=== PATIENT | male | born 1980 | race Caucasian/White ===

== ENCOUNTER 2016-11-26 07:50 | Observation (INO) | payer OTHER ==
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
[2016-11-26 08:12] LABS: % IMMATURE GRANULYOCYTES 0.9 % (0.0-1.1); ABSOLUTE IMMATURE GRANULOCYTES 0.21 10^3/uL (0.00-0.10); ADD DIFF? NO; ADD MORPH? NO; ADD SCAN? NO; ATYPICAL LYMPHOCYTE FLAG 0 (0-99); FRAGMENT RBC FLAG 0 (0-99); HEMATOCRIT 48.5 % (40.0-51.0); HEMOGLOBIN 16.7 g/dL (13.7-17.5); LEFT SHIFT FLG 0 (0-99); LIPEMIA HEMOLYSIS FLAG 90 (0-99); MEAN CELL HEMOGLOBIN 31.2 pg (27.9-34.1); MEAN CELL HEMOGLOBIN CONCENTR. 34.4 g/dL (32.4-36.7); MEAN CELL VOLUME 90.7 fL (81.5-99.8); MEAN PLATELET VOLUME 11.1 fL (8.7-11.7); PLATELET CLUMPS FLAG 20 (0-99); PLATELET COUNT 221 10^3/uL (150-400); RED BLOOD CELL COUNT 5.35 10^6/uL (4.40-6.38); RED CELL DISTRIBUTION WIDTH 12.1 % (11.5-15.2)
[2016-11-26 08:19] LABS: ANION GAP 21 mEq/L (8-16); CALCIUM 9.6 mg/dL (8.5-10.4); CARBON DIOXIDE 24 mEq/l (22-31); CHLORIDE 101 mEq/L (97-110); CREATININE 1.1 mg/dL (0.7-1.3); ETHANOL SERUM < 10 mg/dL (0-10); GLOMERULAR FILTRATION RATE > 60; GLUCOSE 140 mg/dL (70-100); POTASSIUM 3.9 mEq/L (3.5-5.2); SODIUM 146 mEq/L (134-144)
[2016-11-26 08:21] LABS: INR 1.09 (0.83-1.16)
[2016-11-26 08:22] LABS: APTT 25.9 SEC (23.0-38.0)
[2016-11-26] MEDS ORDERED: IOPAMIDOL (ISOVUE-300) 100 ML BTL IV ONE (08:41)
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
--- NOTE | 2016-11-26 09:24 | DX ---
Portable Right Shoulder and Right Scapula (5 Views Total at 8:32 a.m.) Clinical History: 36-year-old male status post fall, complaining of right shoulder pain. Comparison Study: CT scan of the chest from today at 8:22 a.m. Findings: RIGHT SHOULDER: There is a distal right clavicular fracture with slight cephalad apex angular deform ity, and CT images also demonstrated a fracture at the base of the coracoid process, as well as a min or nondisplaced fracture over the central aspect of the right scapula. The glenohumeral and acromiocl avicular joints remain anatomically aligned. The coracoclavicular distance is normal. The visualized right rib cage is unremarkable. Numerous telemetry monitoring lead lines are present. Impression: 1. Distal right clavicular fracture with slight cephalad apex angulation. 2. Fracture involving the base of the coracoid process. 3. Glenohumeral alignment. 4. Nondisplaced minor fracture through the central right scapula (seen to better advantage on the CT scan). RIGHT SCAPULA: Fractures involving the subcoracoid process of the scapula and central scapular body were seen to better advantage on dedicated CT imaging. Impression: Limited evaluation of the scapula (please reference the chest CT imaging and report).
[2016-11-26] MEDS ORDERED: TDAP ADULT 0.5 ML VIAL (BOOSTRIX) IM ONE (09:30)
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
[2016-11-26] MEDS ORDERED: ONDANSETRON 4 MG/2 ML VIAL IVP PRN (09:52)
--- NOTE | 2016-11-26 10:40 | DX ---
Portable Bilateral Feet, Ankles, and Calcanei Clinical History: 36-year-old male status post fall, complaining of pain. Comparison Study: None. Findings: PORTABLE LEFT FOOT (3 Views, at 9:33 a.m.): Bone mineralization is preserved. There is no fracture or dislocation. The tarsometatarsal alignment is anatomic. Impression: Negative. PORTABLE LEFT CALCANEUS (AP and Lateral Views, 10:07 a.m.): There is no fracture or dislocation. Boeh ler's angle is normal. The subtalar joint is normal. There is some very mild indistinctness of the pr e-Achilles fat pad. Impression: No acute osseous abnormality. PORTABLE LEFT ANKLE (3 Views, at 9:34 a.m.): Bone mineralization is preserved. There is no fracture o r dislocation. The mortise is maintained. There is no ankle joint effusion. Impression: There is no acute osseous abnormality. PORTABLE RIGHT FOOT (3 Views, at 9:40 a.m.): Bone mineralization is observed. There is some mild dege nerative change of the great toe metatarsophalangeal joint with mild joint space narrowing and some l ateralized early osteophyte formation. There is a bone island at the great toe distal tuft. There is no acute fracture or dislocation. The tarsometatarsal alignment is anatomic. Impression: No acute osseous abnormality. PORTABLE RIGHT CALCANEUS (AP and Lateral Views, at 10:07 a.m.): There is no acute fracture or disloca tion. Boehler's angle is normal. The subtalar joint is normal. There is some mild indistinctness of t he pre-Achilles fat pad. There is no radiopaque foreign body. Impression: No acute osseous abnormality. PORTABLE RIGHT ANKLE (3 Views, at 9:34 a.m.): There is no fracture, dislocation, or mortise disruptio n. The talar dome is well-contoured. The subtalar joint is normal. There is no ankle joint effusion. Impression: There is no acute osseous abnormality.
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
[2016-11-26] MEDS: BACITRACIN ZINC TP SCH ×2 (11:46→20:53)
[2016-11-26] MEDS: LR 1,000 ML IV SCH ×2 (11:47→18:30)
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
[2016-11-26] MEDS ORDERED: ZOLPIDEM TARTRATE 5 MG TAB PO PRN (14:35)
--- NOTE | 2016-11-26 15:06 | GCON ---
[f rep st] CONSULTATION CRITICAL CARE CONSULTATION. DATE OF CONSULTATION: 11/26/2016 CHIEF COMPLAINT: Right shoulder pain. HISTORY OF PRESENT ILLNESS: This is a 36-year-old male who is reported to have fallen approximately 40 feet last night. He was brought to the emergency room and admitted to the ICU. The details of hi s fall seem quite unclear at this time. He complained of right shoulder pain and further evaluation revealed a right clavicle and a right scapula fracture. The patient is unable to give a very good hi story at this point, as he is schizophrenic and is actually talking to an imaginary friend in the [facility] at the time that I see him. His parents are here, but he is primarily ignoring them at this point and not answering their questions either. The parents state that he has a long history of schizophre gianfranco and has been on medications for that, but stops them and has not been on medications recently. Amy good lives with his parents, who have recently moved from [place] to [place]. He left them yesterday to go watch the [employer] in [place]. Apparently, he was a student at at some point. The patien shreyas is complaining of some right shoulder pain still, although it seems well controlled, as I have to a sk him whether he is having any discomfort. PAST MEDICAL HISTORY: Schizophrenia. ALLERGIES: To medications none. MEDICATIONS: He is not taking any. PAST SURGICAL HISTORY: None. SOCIAL HISTORY: The patient does not smoke, use excessive alcohol, or any illicit drugs. He lives w ith his parents in [place]. REVIEW OF SYSTEMS: Review of systems x10 points is otherwise noncontributory. PHYSICAL EXAMINATION: VITAL SIGNS: Blood pressure is 120/70 with a pulse of 91, respiratory rate of 19, oxygen saturation 98% on 2 L, and he is afebrile. SKIN: Normal. HEAD: Without external evide nce of trauma. EYES: PERRL. External ocular movements full. Fundi not visualized. EARS: Canals c lear. Tympanic membranes intact. NOSE: Without septal deviation or polyps. MOUTH and PHARYNX: Cl ear without lesions. NECK: Supple without adenopathy. No jugular venous distention. Thyroid is no rmal. Trachea is midline. Carotids 2+ and symmetric without bruits. CHEST: Clear to auscultation and percussion. HEART: PMI 5th intercostal space, midclavicular line. S1 and S2 are normal. There is no S3, S4, or murmur. ABDOMEN: Soft without organomegaly or masses. Bowel sounds are present. There is no tenderness. EXTREMITIES: Full range of motion without clubbing, cyanosis, or periphera l edema, except for the right arm which is limited by pain in his shoulder. DATABASE: Head CT shows a right posterior scalp hematoma without any intracranial bleed. Cervical s pine film shows no acute injuries. He does have a fracture of his right clavicle and right scapula o n films. IMPRESSION: 1. Right clavicle and right scapula fractures. 2. Scalp hematoma without intercerebral bleed. 3. Chronic schizophrenia, untreated. PLAN: The patient is being monitored in the intensive care unit with neuro checks. He has been seen by Trauma Surgery, Neurosurgery, and Orthopedic Surgery. Eventually, we will try to get a psychiatr ic consultation to see if we can resume some psych medications, but the patient has always stopped th ose in the past on his own, so that is unlikely to be very successful. /[id number]/MODL
[2016-11-26 16:42] LABS: % IMMATURE GRANULYOCYTES 0.5 % (0.0-1.1); ABSOLUTE IMMATURE GRANULOCYTES 0.05 10^3/uL (0.00-0.10); ADD DIFF? NO; ADD MORPH? NO; ADD SCAN? NO; ATYPICAL LYMPHOCYTE FLAG 10 (0-99); FRAGMENT RBC FLAG 0 (0-99); HEMATOCRIT 41.1 % (40.0-51.0); HEMOGLOBIN 14.3 g/dL (13.7-17.5); LEFT SHIFT FLG 0 (0-99); LIPEMIA HEMOLYSIS FLAG 90 (0-99); MEAN CELL HEMOGLOBIN 31.4 pg (27.9-34.1); MEAN CELL HEMOGLOBIN CONCENTR. 34.8 g/dL (32.4-36.7); MEAN CELL VOLUME 90.1 fL (81.5-99.8); PLATELET CLUMPS FLAG 0 (0-99); PLATELET COUNT 180 10^3/uL (150-400); RED BLOOD CELL COUNT 4.56 10^6/uL (4.40-6.38); RED CELL DISTRIBUTION WIDTH 12.2 % (11.5-15.2)
[2016-11-26] MEDS ORDERED: BACITRACIN OINTMENT 1 PACKET TP ONE (20:47)
[2016-11-26] MEDS: OXYCODONE/APAP 5/325 TAB PO PRN (20:53)
[2016-11-27] MEDS: OXYCODONE/APAP 5/325 TAB PO PRN ×2 (01:32→09:49)
[2016-11-27 01:37] LABS: % IMMATURE GRANULYOCYTES 0.2 % (0.0-1.1); ABSOLUTE IMMATURE GRANULOCYTES 0.02 10^3/uL (0.00-0.10); ADD DIFF? NO; ADD MORPH? NO; ADD SCAN? NO; ATYPICAL LYMPHOCYTE FLAG 0 (0-99); FRAGMENT RBC FLAG 0 (0-99); HEMATOCRIT 39.8 % (40.0-51.0); HEMOGLOBIN 13.8 g/dL (13.7-17.5); LEFT SHIFT FLG 0 (0-99); LIPEMIA HEMOLYSIS FLAG 90 (0-99); MEAN CELL HEMOGLOBIN 31.2 pg (27.9-34.1); MEAN CELL HEMOGLOBIN CONCENTR. 34.7 g/dL (32.4-36.7); MEAN PLATELET VOLUME 10.8 fL (8.7-11.7); PLATELET CLUMPS FLAG 20 (0-99); PLATELET COUNT 162 10^3/uL (150-400); RED BLOOD CELL COUNT 4.42 10^6/uL (4.40-6.38); RED CELL DISTRIBUTION WIDTH 12.1 % (11.5-15.2)
[2016-11-27] MEDS: LR 1,000 ML IV SCH (01:38)
[2016-11-27 05:50] LABS: % IMMATURE GRANULYOCYTES 0.5 % (0.0-1.1); ABSOLUTE IMMATURE GRANULOCYTES 0.05 10^3/uL (0.00-0.10); ADD DIFF? NO; ADD MORPH? NO; ADD SCAN? NO; ATYPICAL LYMPHOCYTE FLAG 20 (0-99); FRAGMENT RBC FLAG 0 (0-99); HEMATOCRIT 38.5 % (40.0-51.0); HEMOGLOBIN 13.5 g/dL (13.7-17.5); LEFT SHIFT FLG 0 (0-99); LIPEMIA HEMOLYSIS FLAG 90 (0-99); MEAN CELL HEMOGLOBIN 31.9 pg (27.9-34.1); MEAN CELL HEMOGLOBIN CONCENTR. 35.1 g/dL (32.4-36.7); MEAN PLATELET VOLUME 10.8 fL (8.7-11.7); PLATELET CLUMPS FLAG 10 (0-99); PLATELET COUNT 154 10^3/uL (150-400); RED BLOOD CELL COUNT 4.23 10^6/uL (4.40-6.38)
[2016-11-27 06:03] LABS: ANION GAP 9 mEq/L (8-16); CALCIUM 8.8 mg/dL (8.5-10.4); CARBON DIOXIDE 27 mEq/l (22-31); CHLORIDE 103 mEq/L (97-110); CREATININE 0.8 mg/dL (0.7-1.3); GLOMERULAR FILTRATION RATE > 60; GLUCOSE 119 mg/dL (70-100); POTASSIUM 4.2 mEq/L (3.5-5.2); SODIUM 139 mEq/L (134-144)
--- NOTE | 2016-11-27 08:57 | TRAUMAPN ---
- Problem/Surgery Performed (1) Head injury Assessment/Plan: cognitive evaluation with speech therapy today, if clear for discharge, may be able to go home today Qualifiers: Encounter type: initial encounter Qualifier Code(s): (S09.90XA) Unspecified injury of head, initial encounter (2) Right clavicle fracture Assessment/Plan: f/u with Dr. Ceron in 7-10 days with repeat right shoulder Xrays continue sling and ice for comfort Qualifiers: Encounter type: initial encounter Clavicle location: shaft Fracture type: closed Fracture alignment: nondisplaced Qualifier Code(s) : (S42.024A) Nondisplaced fracture of shaft of right clavicle, initial encounter for closed fracture (3) Right scapula fracture Assessment/Plan: f/u with Dr. Ceron in 7-10 days with repeat right shoulder Xrays continue sling and ice for comfort Qualifiers: Encounter type: initial encounter Scapula location: coracoid process Fracture type: closed Fracture alignment: nondisplaced Qualifier Code (s): (S42.134A) Nondisplaced fracture of coracoid process, right shoulder, initial encounter for closed fracture (4) Scalp laceration Assessment/Plan: remove binta in 6 days Qualifiers: Encounter type: initial encounter Qualifier Code(s): (S01.01XA) Laceration without foreign body of scalp, initial encounter Objective: Vital Signs Temp Pulse Resp BP Pulse Ox 36.9 C 65 15 99/57 L 97 11/27/16 07:47 11/27/16 07:47 11/27/16 07:47 11/27/16 07:47 11/27/16 07:47 Laboratory Results 11/27/16 05:40 11/27/16 05:40 11/26/16 11/27/16 11/28/16 05:59 05:59 05:59 Intake Total 4570 Output Total 700 Balance 3870 PT 14.0 SEC (12.0-15.0) 11/26/16 07:45 INR 1.09 (0.83-1.16) 11/26/16 07:45 - C-Spine Clearance Cervical Spine Cleared: Yes Provider who Cleared Cervical Spine: Iliana Time Cervical Spine was Cleared: 09:00 Physical Exam - Physical Exam General Appearance: alert Neck: non-tender, full range of motion Respiratory: lungs clear Cardiac/Chest: regular rate, rhythm Abdomen: non-tender, soft
[2016-11-27] MEDS ORDERED: DOCUSATE SODIUM 100 MG CAP PO SCH (09:00)
[2016-11-27] MEDS: BACITRACIN ZINC TP SCH (09:53)
--- NOTE | 2016-11-27 10:22 | NEUSURGPN ---
Assessment/Plan: 36y/o male s/p fall 30 feet. Negative HCT. Was able to clear cervical spine this morning clinically this morning -PT/OT -Optimize pain management -Will s/o at this time. If he develops any new or worsening symptoms please notify NS with any change in neuro/motor exam Subjective: lateral pain on top of his shoulders. Denies any spinal TTP Objective: NAD A&Ox3 MAEx4, right arm in sling, wiggle fingers, LUE and BLE 5/5 - Physician Discussed Patient with : [facility] Neurosurgery Physical Exam - Vitals, I&O, Labs I and O 11/26/16 11/27/16 11/28/16 05:59 05:59 05:59 Intake Total 4570 Output Total 700 Balance 3870 Weight 95.254 kg Intake: Oral (ml) 1700 IV Intake (ml) 670 IV Infused (ml) 2200 Lr 1,000 ml @ 125 mls/hr 1500 IV CONT BRADLEY Rx#: [id number] Output: Urine (ml) 700 Urinal 700 Chest Tube Drainage (ml) 0 Estimated Blood Loss (ml) 0 Emesis (ml) 0 Gastrointestinal Drainage 0 (ml) Wound Drainage (ml) 0 Other: Number of Voids 0 Urinal 1 Number of Bowel Movements 0 Number of Emesis 0 Occurrences Vital Signs Temp Pulse Resp BP Pulse Ox 36.9 C 65 15 99/57 L 97 11/27/16 07:47 11/27/16 07:47 11/27/16 07:47 11/27/16 07:47 11/27/16 07:47 Laboratory Results 11/27/16 05:40 11/27/16 05:40 ICD10 Worksheet Patient Problems: Problems Problem Status Diagnosed Abrasions of multiple sites Acute Head injury Acute Right clavicle fracture Acute Right scapula fracture Acute Scalp laceration Acute
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
[2016-11-27 11:49] VITALS: TEMP 98.7; O2SAT 96
--- NOTE | 2016-11-27 12:08 | MR ---
MRI of the Cervical Spine (Without Contrast) History: Neck pain post fall yesterday Comparison: CT yesterday Technique: Saggital T1, FSE T2 and STIR images. Axial FSE T2 and GRE images. Findings: The craniocervical junction is normal. Cervical alignment is anatomic.The cervical neural c anal is congenitally small. Vertebral bodies maintain normal bone marrow signal. The anterior and pos terior longitudinal ligaments are intact. Disk spaces maintain normal height. The cervical cord is no rmal intrinsically, without evidence of edema, hemorrhage, cyst formation or gliosis. All neural fora men are widely patent. C2-C3: Normal C3-C4: There is a mild central disk bulge that approaches the ventral aspect of the cord. The cord is not flattened or dorsally displaced. In the midline AP diameter of the thecal sac is approximately 1 0 mm. C4-C5: There is a focal central , angular, disk bulge or protrusion that touches the ventral aspect o f the cervical cord, which is subtly indenting. The cord is not dorsally displaced. In the midline AP diameter of the thecal sac is approximately 9.3 mm. C5-C6: There is a moderate eccentric to the right of midline disk protrusion associated with an annul ar tear that is associated with flattening of the right side of the cord. This extends into the right lateral recess. Only a tiny amount of CSF remains in front of and behind the midline cord where AP d iameter of the thecal sac is approximately 9 mm. C6-C7: Normal AP diameter of the thecal sac is 11 mm. C7-T1: Normal. AP diameter of the thecal sac is 14 mm. 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 The ac uity of a dominant right disk protrusion at C5-C6 is indeterminate.
[2016-11-27 16:43] VITALS: BP 94/57; PULSE 72; RESP 14
--- NOTE | 2016-11-28 08:49 | MR ---
MRI Right Ankle Without Contrast Clinical Indications: Right ankle pain and swelling. Instability. Anterior drawer sign on clinical e xam. Fall. Technique: MRI was performed of the ankle using a 3 [employer] MRI system. Sagittal, coronal, and axial im aging was obtained with standard imaging sequences. Findings: General: Soft tissue swelling is seen around the ankle, more predominant over the medial malleolus. N o evidence for fracture. Subtle focal area of cartilage thinning is seen in the medial talar dome wit h minimal subarticular bone marrow edema. No evidence for an osteochondral fracture or loose body. Ligaments: There is mild attenuation of the anterior talofibular ligament of the talar attachment. Ca lcaneofibular ligament is intact. Posterior talofibular ligament is intact. The anterior and posterio r tibiofibular ligament is intact. Deltoid ligament is intact. Peroneal tendons: Unremarkable. Superior peroneal retinaculum is intact. Posterior medial tendons: Mild abnormal signal intensity is seen in the distal tibialis posterior ten don with mild fluid distention of the tendon sheath. Flexor digitorum and flexor hallucis longus tend ons are unremarkable. Anterior tendons: Unremarkable. Achilles tendon: Mild edema is seen superficial to the Achilles tendon. Achilles tendon itself is unr emarkable. Plantar fascia: There is a complete tear of the lateral cord of the plantar fascia from the insertion of the calcaneus retracted 8 mm. There is edema at the medial cord of the plantar fascia insertion. Impression: 1. Complete tear of the lateral cord of the plantar fascia with mild retraction. Strain of the medial cord. 2. Partial tear anterior talofibular ligament. 3. Subtle small cartilage injury at the medial talar dome but no definite osteochondral fracture. 4. Mild tendinopathy or strain distal tibialis posterior tendon. 5. Edema in the subcutaneous fat around the ankle, more predominant over the medial malleolus.
== END 2016-11-27 08:03 | disposition home or self-care (01) ==
LOC: INTOOBSV 09:20 → F2N 10:20
PROVIDERS: ADMIT Surgery; ATTEND Surgery
PROC: 0HQ0XZZ Repair Scalp Skin, External Approach (ICD-10-PCS; principal; 2016-11-26)
DX: S42.024A Nondisplaced fracture of shaft of right clavicle, initial encounter for closed fracture (principal); S42.134A Nondisplaced fracture of coracoid process, right shoulder, initial encounter for closed fracture; S06.0X9A Concussion with loss of consciousness of unspecified duration, initial encounter; S01.01XA Laceration without foreign body of scalp, initial encounter; S31.119A Laceration without foreign body of abdominal wall, unspecified quadrant without penetration into peritoneal cavity, initial encounter; W15.XXXA Fall from cliff, initial encounter; Y93.01 Activity, walking, marching and hiking; Y92.828 Other wilderness area as the place of occurrence of the external cause; F20.9 Schizophrenia, unspecified; Z23 Encounter for immunization
CPT/HCPCS: 12001; 70450; 71010; 71260; 72125; 72141; 73010; 73030; 73610; 73630; 73650; 73721; 74177; 90471; 90715; 92507; 92523; 92610; 97116; 97161; 97165; 99291; G0378; G8978; G8979; G8980; G8987; G8988; Q9967; 82947-QW; G0480